=== PATIENT | female | born 1975 | race Caucasian/White ===

== ENCOUNTER 2022-01-18 07:43 | Outpatient (CLI) | payer OTHER, SELFPAY ==
[2022-01-18 10:31] LABS: Ferritin* 5.2 ng/mL (6.24-137.0)
[2022-01-18 10:32] LABS: Cholesterol* 214 mg/dL (90-199); HDL Cholesterol* 76 mg/dL (>=50); LDL Cholesterol Calculated 117 mg/dL (<100); Triglycerides* 103 mg/dL (40-149)
[2022-01-18 11:21] LABS: Vitamin B12* 252 pg/mL (243-894)
== END 2022-01-18 07:44 | disposition home or self-care (01) ==
PROVIDERS: PCP Family Medicine; Visit Provider Family Medicine
DX: Z01.419 Encounter for gynecological examination (general) (routine) without abnormal findings (principal); D50.9 Iron deficiency anemia, unspecified; Z78.9 Other specified health status; Z13.6 Encounter for screening for cardiovascular disorders
CPT/HCPCS: 80061; 82607; 82728

== ENCOUNTER 2022-05-24 09:10 | Outpatient (CLI) | payer OTHER, SELFPAY ==
--- NOTE | 2022-05-24 09:15 | CRLHL7_ITS ---
For Patients: As a result of the Century Cures Act, medical imaging exams and procedure reports are released immediately into your electronic medical record. You may view this report before your referring provider. If you have questions, please contact your health care provider. BILATERAL SCREENING MAMMOGRAM WITH COMPUTER-AIDED DETECTION TECHNIQUE: CC and MLO views were obtained. These mammographic images have been obtained using full-field digital technique. These mammographic images were interpreted with the benefit of computer-aided detection. COMPARISON FILM: Baseline. FINDINGS: There are scattered areas of fibroglandular density IMPRESSION: There is no radiographic evidence for malignancy. ASSESSMENT: BI-RADS Category 1: Negative RECOMMENDATION: Routine screening mammogram in 1 year. A lay language report of this examination will be provided to the patient. Gualberto Stewart M.D. Diagnostic Radiologist [email or web address] UMA/Dictated by: Gualberto Stewart MD @ 05/24/2022 11:40:00 AM (Electronically Signed)
== END 2022-05-24 09:11 | disposition home or self-care (01) ==
PROVIDERS: PCP Family Medicine; Visit Provider Family Medicine
DX: Z12.31 Encounter for screening mammogram for malignant neoplasm of breast (principal)
CPT/HCPCS: 77067

== ENCOUNTER 2022-08-16 14:28 | Outpatient (CLI) | payer BC, SELFPAY | END 2022-08-16 14:29 | disposition home or self-care (01) | PROVIDERS: PCP Family Medicine; Visit Provider Family Medicine | DX: D50.8 Other iron deficiency anemias (principal); D53.8 Other specified nutritional anemias; Z79.899 Other long term (current) drug therapy | CPT/HCPCS: 80053; 82607; 82728 ==

== ENCOUNTER 2023-02-14 08:36 | Outpatient (CLI) | payer BC, SELFPAY | END 2023-02-14 08:37 | disposition home or self-care (01) | LOC: NFLDREF 02-15 00:41 | PROVIDERS: PCP Family Medicine; Referring Provider Family Medicine; Visit Provider Family Medicine | DX: Z00.00 Encounter for general adult medical examination without abnormal findings (principal); E53.8 Deficiency of other specified B group vitamins; R03.0 Elevated blood-pressure reading, without diagnosis of hypertension; D50.9 Iron deficiency anemia, unspecified | CPT/HCPCS: 80053; 82607; 82728 ==

== ENCOUNTER 2024-03-01 08:25 | Outpatient (CLI) | payer BC, SELFPAY | END 2024-03-01 08:26 | disposition home or self-care (01) | LOC: NFLDREF 03-05 21:36 | PROVIDERS: PCP Family Medicine; Referring Provider Family Medicine; Visit Provider Family Medicine | DX: E78.5 Hyperlipidemia, unspecified (principal); I10 Essential (primary) hypertension; D50.9 Iron deficiency anemia, unspecified; E53.8 Deficiency of other specified B group vitamins | CPT/HCPCS: 80053; 80061; 82607; 82728 ==

== ENCOUNTER 2024-09-10 09:35 | Outpatient (CLI) | payer BC, SELFPAY | END 2024-09-10 09:36 | disposition home or self-care (01) | LOC: NFLDREF 09-14 00:12 | PROVIDERS: PCP Family Medicine; Referring Provider Family Medicine; Visit Provider Family Medicine | DX: I10 Essential (primary) hypertension (principal) | CPT/HCPCS: 80048 ==

== ENCOUNTER 2025-03-10 08:43 | Outpatient (CLI) | payer OTHER, SELFPAY | END 2025-03-10 08:44 | disposition home or self-care (01) | LOC: NFLDREF 03-11 16:21 | PROVIDERS: PCP Family Medicine; Referring Provider Family Medicine; Visit Provider Family Medicine | DX: I10 Essential (primary) hypertension (principal); E53.8 Deficiency of other specified B group vitamins; D50.8 Other iron deficiency anemias; E78.5 Hyperlipidemia, unspecified | CPT/HCPCS: 80053; 80061; 82607; 82728 ==